=== PATIENT | male | born 2000 | race American Indian/Alaskan Native ===

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

== ENCOUNTER 2020-06-19 14:52 | Emergency (ER) | payer MEDICAID ==
[2020-06-19 15:25] VITALS: BP 124/77; PULSE 95
[2020-06-19 16:33] LABS: CHLORIDE,CL 100 mmol/L (98-107); SODIUM,NA 140 mmol/L (136-145)
[2020-06-19] MEDS ORDERED: Iopamidol 612 MG/ML 100 ML Bottle IVPUSH ONE (16:36)
[2020-06-19] MEDS ORDERED: Sodium Chloride 0.9% 10 ML Syringe FLUSH PRN (16:36)
--- NOTE | 2020-06-19 17:36 | CT ---
PROCEDURE INFORMATION: Exam: CT Abdomen And Pelvis With Contrast Exam date and time: 06/19/2020 5:21 PM Age: 19 years old Clinical indication: Other: Pain; Additional info: Upper left abd. Pain, blood mucus in stool TECHNIQUE: Imaging protocol: Computed tomography of the abdomen and pelvis with contrast. Radiation optimization: All CT scans at this facility use at least one of these dose optimization techniques: automated exposure control; mA and/or kV adjustment per patient size (includes targeted exams where dose is matched to clinical indication); or iterative reconstruction. Contrast material: [id number]; Contrast volume: 75 ml; Contrast route: INTRAVENOUS (IV); COMPARISON: No relevant prior studies available. FINDINGS: Liver: Normal. No mass. Gallbladder and bile ducts: Normal. No calcified stones. No ductal dilation. Pancreas: Normal. No ductal dilation. Spleen: Normal. No splenomegaly. Adrenal glands: Normal. No mass. Kidneys and ureters: Normal. No hydronephrosis. Stomach and bowel: There is mild thickening of the colon at the rectosigmoid junction. This could be due to mild colitis. The colon is otherwise unremarkable. Appendix: The appendix is well seen and is normal in appearance. Intraperitoneal space: Unremarkable. No free air. No significant fluid collection. Vasculature: Unremarkable. No abdominal aortic aneurysm. Lymph nodes: Unremarkable. No enlarged lymph nodes. Urinary bladder: Unremarkable as visualized. Reproductive: Unremarkable as visualized. Bones/joints: Unremarkable. No acute fracture. Soft tissues: Unremarkable. IMPRESSION: 1. Mild thickening of the mucosa of the colon near the rectosigmoid junction. This could be due to mild colitis. No other abnormality identified.
[2020-06-19] MEDS ORDERED: cefTRIAXone 1 GM in Sodium Chloride 0.9% 50 ML IV ONE (17:37)
[2020-06-19] MEDS ORDERED: Doxycycline Monohydrate 100 MG Cap PO ONE (17:38)
[2020-06-19] MEDS ORDERED: methylPREDNISolone Sodium Succinate 125 MG/2 ML SDV IVPUSH ONE (17:38)
--- NOTE | 2020-06-19 17:48 | EDM.PDOC ---
"Scribed by Maryann Goodman 06/19/20 1600 for Leida Alcala MD ED HPI GENERAL MEDICAL PROBLEM - General Chief Complaint: Gastrointestinal Problem Stated Complaint: STOMACHE PAIN VOMITTING/DIARRHEA Time Seen by Provider: 06/19/20 15:13 Source of Information: Reports: Patient, RN, RN Notes Reviewed History Limitations: Reports: No Limitations - History of Present Illness INITIAL COMMENTS - FREE TEXT/NARRATIVE: Patient presents to the ED by POV with c/o upper and left sided abdominal pain that is chronic, but has been worse for the past 3 days. He admits to chronic diarrhea, but for the last three days has had anal leakage with bloody and pus in his stool. Pt states that for about one year he has had daily upper abdominal/stomach pain. Also for the past year he claims to have had diarrhea most days. He does have some formed stool, but not often. Patient states he is self conscious because people tell him he smells like stool. He showers daily, sometimes several times in a day, but still smells like stool. Patient wishes to be checked for STDs because has had unprotected sex, with occasional penile discharge. He states he has had some painful skin bumps at the anus for 1 week, but will not allow them to be examined. He denies anal sex or any homosexual activity. In the past year has not gone to the doctor. He rates his pain 9/10, states took Ibuprofen 400mg 2 days ago but it didn't help. Onset: Other (Approx. one year since onset of symptoms) Duration: Chronic, Constant Location: Reports: Abdomen Quality: Reports: Ache, Burning, Pressure Severity: Severe Improves with: Reports: None Worsens with: Reports: None Associated Symptoms: Reports: No Other Symptoms Abdomen Pain Score (Numeric/FACES): 9 - Related Data Allergies Allergy/AdvReac Type Severity Reaction Status Date / Time No Known Allergies Allergy Verified 06/19/20 15:11 Home Meds: Home Meds . [No Known Home Meds] 12/01/15 [History] Past Medical History - Past Health History Medical/Surgical History: Denies Medical/Surgical History Genitourinary History: Reports: STD Musculoskeletal History: Reports: Fracture - Past Surgical History Musculoskeletal Surgical History: Reports: Other (See Below) Social & Family History - Family History Family Medical History: No Pertinent Family History - Caffeine Use Other Caffeine Use: unknown pt unable to answer questions - Sexual History Sexual History: Reports: Sexually Active - Living Situation & Occupation Living situation: Reports: with Family ED ROS GENERAL - Review of Systems Review Of Systems: Comprehensive ROS is negative, except as noted in HPI. ED EXAM, GI/ABD - Physical Exam Exam: See Below Exam Limited By: No Limitations General Appearance: Alert, WD/WN, No Apparent Distress Eyes: Bilateral: Normal Appearance (No scleral icterus) Nose: Normal Inspection Throat/Mouth: Normal Lips, Normal Voice, No Airway Compromise Head: Atraumatic, Normocephalic Neck: Normal Inspection, Non-Tender, Full Range of Motion. No: Lymphadenopathy (L), Lymphadenopathy (R) Respiratory/Chest: No Respiratory Distress, Lungs Clear, Normal Breath Sounds, No Accessory Muscle Use, Chest Non-Tender Cardiovascular: Normal Peripheral Pulses, Regular Rate, Rhythm, No Edema, No Murmur GI/Abdominal Exam: Normal Bowel Sounds, Soft, No Organomegaly, No Distention, Tender (Epigastric, LUQ, LLQ). No: Guarding, Rigid, Rebound (Male) Exam: Deferred Rectal (Males) Exam: Other (Pt declined/refused rectal exam) Back Exam: Normal Inspection, Full Range of Motion. No: CVA Tenderness (L), CVA Tenderness (R), Vertebral Tenderness Extremities: Normal Inspection, Normal Range of Motion, Non-Tender, Normal Capillary Refill, No Pedal Edema Neurological: Alert, Oriented, CN II-XII Intact, Normal Cognition, Normal Gait, No Motor/Sensory Deficits Psychiatric: Normal Mood, Flat Affect, Other (Not suicidal) Skin Exam: Warm, Dry, Intact, Normal Color, No Rash, Other ((Pt reports perianal skin bumps, but will not allow exam)) Course - Vital Signs Last Recorded V/S: Last Vital Signs Temp 99.1 F 06/19/20 15:02 Pulse 95 06/19/20 15:02 Resp 16 06/19/20 15:02 BP 124/77 06/19/20 15:02 Pulse Ox 100 06/19/20 15:02 - Orders/Labs/Meds Orders: Active Orders 24 hr Category Date Time Status Peripheral IV Care [RC] . DIRECTED Care 06/19/20 16:36 Active STD PANEL 3 [REF] Stat Lab 06/19/20 15:59 Received Sodium Chloride 0.9% [Saline Flush] Med 06/19/20 16:36 Active 10 ml FLUSH ASDIRECTED PRN cefTRIAXone [Rocephin] 1 gm Med 06/19/20 17:37 Ordered Sodium Chloride 0.9% [Normal Saline] 50 ml IV ONETIME Peripheral IV Insertion Adult [OM.PC] Stat Oth 06/19/20 16:36 Ordered Medication Orders Ceftriaxone Sodium 1 gm/ (Sodium Chloride) 50 mls @ 100 mls/hr IV ONETIME ONE Stop: 06/19/20 18:06 Sodium Chloride (Saline Flush) 10 ml FLUSH ASDIRECTED PRN PRN Reason: Keep Vein Open Labs: Laboratory Tests 06/19/20 06/19/20 06/19/20 Range/Units 15:59 15:59 16:01 WBC 5.9 (5.0-10.0) 10^3/uL RBC 5.83 (4.6-6.2) 10^6/uL Hgb 17.4 (14.0-18.0) g/dL Hct 50.7 (40.0-54.0) % MCV 87.0 (80-100) fL MCH 29.8 (27.0-34.0) pg MCHC 34.3 (33.0-35.0) g/dL Plt Count 267 (150-450) 10^3/uL Neut % (Auto) 61.2 (42.2-75.2) % Lymph % (Auto) 28.4 (20.5-50.1) % Divide % (Auto) 8.1 H (2-8) % Eos % (Auto) 2.0 (1.0-3.0) % Baso % (Auto) 0.3 (0.0-1.0) % ESR 1 (0-15) mm/hr Sodium (136-145) mmol/L Potassium (3.5-5.1) mmol/L Chloride (98-107) mmol/L Carbon Dioxide (21-32) mmol/L Anion Gap (7-13) mEq/L BUN (7-18) mg/dL Creatinine (0.70-1.30) mg/dL Est Cr Clr Drug Dosing mL/min Estimated GFR (MDRD) BUN/Creatinine Ratio (No establ ref range) Glucose (74-99) mg/dL Calcium (8.5-10.1) mg/dL Total Bilirubin (0.2-1.0) mg/dL AST (15-37) U/L ALT (16-63) U/L Alkaline Phosphatase (46-116) U/L C-Reactive Protein (0.0-0.9) mg/dL Total Protein (6.4-8.2) g/dL Albumin (3.4-5.0) g/dL Globulin Albumin/Globulin Ratio Amylase (25-115) U/L Lipase (73-393) U/L TSH, Ultra Sensitive (0.36-3.74) uIU/mL Urine Color Yellow (YELLOW) Urine Appearance Clear (CLEAR) Urine pH 7.0 (5.0-9.0) Ur Specific [place] 1.010 (1.005-1.030) Urine Protein Negative (NEGATIVE) Urine Glucose (UA) Negative (NEGATIVE) Urine Ketones Negative (NEGATIVE) Urine Occult Blood Negative (NEGATIVE) Urine Nitrite Negative (NEGATIVE) Urine Bilirubin Negative (NEGATIVE) Urine Urobilinogen 1.0 (0.2-1.0) mg/dL Ur Leukocyte Esterase Negative (NEGATIVE) Urine Opiates Screen Negative (NEGATIVE) Ur Oxycodone Screen Negative (NEGATIVE) Urine Methadone Screen Negative (NEGATIVE) Ur Barbiturates Screen Negative (NEGATIVE) U Tricyclic Antidepress Negative (NEGATIVE) Ur Phencyclidine Scrn Negative (NEGATIVE) Ur Amphetamine Screen Positive H (NEGATIVE) U Methamphetamines Scrn Positive H (NEGATIVE) Urine MDMA Screen Negative (NEGATIVE) U Benzodiazepines Scrn Negative (NEGATIVE) Urine Cocaine Screen Negative (NEGATIVE) U Marijuana (THC) Screen Positive H (NEGATIVE) 06/19/20 Range/Units 16:01 WBC (5.0-10.0) 10^3/uL RBC (4.6-6.2) 10^6/uL Hgb (14.0-18.0) g/dL Hct (40.0-54.0) % MCV (80-100) fL MCH (27.0-34.0) pg MCHC (33.0-35.0) g/dL Plt Count (150-450) 10^3/uL Neut % (Auto) (42.2-75.2) % Lymph % (Auto) (20.5-50.1) % Divide % (Auto) (2-8) % Eos % (Auto) (1.0-3.0) % Baso % (Auto) (0.0-1.0) % ESR (0-15) mm/hr Sodium 140 (136-145) mmol/L Potassium 4.0 (3.5-5.1) mmol/L Chloride 100 (98-107) mmol/L Carbon Dioxide 31 (21-32) mmol/L Anion Gap 13.0 (7-13) mEq/L BUN 9 (7-18) mg/dL Creatinine 1.02 (0.70-1.30) mg/dL Est Cr Clr Drug Dosing 115.52 mL/min Estimated GFR (MDRD) > 60 BUN/Creatinine Ratio 8.8 (No establ ref range) Glucose 95 (74-99) mg/dL Calcium 9.0 (8.5-10.1) mg/dL Total Bilirubin 1.1 H (0.2-1.0) mg/dL AST 13 L (15-37) U/L ALT 33 (16-63) U/L Alkaline Phosphatase 99 (46-116) U/L C-Reactive Protein < 0.2 (0.0-0.9) mg/dL Total Protein 8.5 H (6.4-8.2) g/dL Albumin 4.6 (3.4-5.0) g/dL Globulin 3.9 Albumin/Globulin Ratio 1.2 Amylase 26 (25-115) U/L Lipase 45 L (73-393) U/L TSH, Ultra Sensitive 0.75 (0.36-3.74) uIU/mL Urine Color (YELLOW) Urine Appearance (CLEAR) Urine pH (5.0-9.0) Ur Specific [place] (1.005-1.030) Urine Protein (NEGATIVE) Urine Glucose (UA) (NEGATIVE) Urine Ketones (NEGATIVE) Urine Occult Blood (NEGATIVE) Urine Nitrite (NEGATIVE) Urine Bilirubin (NEGATIVE) Urine Urobilinogen (0.2-1.0) mg/dL Ur Leukocyte Esterase (NEGATIVE) Urine Opiates Screen (NEGATIVE) Ur Oxycodone Screen (NEGATIVE) Urine Methadone Screen (NEGATIVE) Ur Barbiturates Screen (NEGATIVE) U Tricyclic Antidepress (NEGATIVE) Ur Phencyclidine Scrn (NEGATIVE) Ur Amphetamine Screen (NEGATIVE) U Methamphetamines Scrn (NEGATIVE) Urine MDMA Screen (NEGATIVE) U Benzodiazepines Scrn (NEGATIVE) Urine Cocaine Screen (NEGATIVE) U Marijuana (THC) Screen (NEGATIVE) Meds: Medications Generic Name Dose Route Start Last Admin Trade Name Freq PRN Reason Stop Dose Admin Ceftriaxone Sodium 1 gm/ 50 mls @ 100 mls/hr 06/19/20 17:37 Sodium Chloride IV 06/19/20 18:06 ONETIME ONE Sodium Chloride 10 ml 06/19/20 16:36 Saline Flush FLUSH ASDIRECTED PRN Keep Vein Open Discontinued Medications Generic Name Dose Route Start Last Admin Trade Name Freq PRN Reason Stop Dose Admin Doxycycline Monohydrate 100 mg 06/19/20 17:38 Doxycycline Monohydrate PO 06/19/20 17:39 ONETIME ONE Iopamidol 100 ml 06/19/20 16:36 06/19/20 16:42 Isovue-300 (61%) IVPUSH 06/19/20 16:37 100 ml ONETIME ONE Administration Methylprednisolone Sodium Succinate 125 mg 06/19/20 17:38 Solu-Medrol IVPUSH 06/19/20 17:39 ONETIME ONE - Radiology Interpretation Free Text/Narrative:: [facility] Final Radiology Report Call: [phone] assistance Online chat: [email or web address] Name: RIVER BOONE Age: 19Years M Date: 06/19/2020 SSN: -- : 2000 Study: CT ABDOMEN PELVIS W CONT Requesting Physician: LEIDA ALCALA Images: [id number] Addl Studies: Provided Clinical History: upper left abd. pain, blood mucus in stool Contrast: With Contrast Medium: [id number] Contrast Amount: 75 mL Contrast Method: Intravenous (IV) Page 1 of 2 PROCEDURE INFORMATION: Exam: CT Abdomen And Pelvis With Contrast Exam date and time: 06/19/2020 5:21 PM Age: 19 years old Clinical indication: Other: Pain; Additional info: Upper left abd. Pain, blood mucus in stool TECHNIQUE: Imaging protocol: Computed tomography of the abdomen and pelvis with contrast. Radiation optimization: All CT scans at this facility use at least one of these dose optimization techniques: automated exposure control; mA and/or kV adjustment per patient size (includes targeted exams where dose is matched to clinical indication); or iterative reconstruction. Contrast material: [id number]; Contrast volume: 75 ml; Contrast route: INTRAVENOUS (IV); COMPARISON: No relevant prior studies available. FINDINGS: Liver: Normal. No mass. Gallbladder and bile ducts: Normal. No calcified stones. No ductal dilation. Pancreas: Normal. No ductal dilation. Spleen: Normal. No splenomegaly. Adrenal glands: Normal. No mass. Kidneys and ureters: Normal. No hydronephrosis. Stomach and bowel: There is mild thickening of the colon at the rectosigmoid junction. This could be due to mild colitis. The colon is otherwise unremarkable. Appendix: The appendix is well seen and is normal in appearance. Intraperitoneal space: Unremarkable. No free air. No significant fluid collection. Vasculature: Unremarkable. No abdominal aortic aneurysm. Lymph nodes: Unremarkable. No enlarged lymph nodes. RIVER BOONE | Final Radiology Report CONFIDENTIALITY STATEMENT This report is intended only for use by the referring physician, and only in accordance with law. If you received this in error, call [phone]. Page 2 of 2 Urinary bladder: Unremarkable as visualized. Reproductive: Unremarkable as visualized. Bones/joints: Unremarkable. No acute fracture. Soft tissues: Unremarkable. IMPRESSION: 1. Mild thickening of the mucosa of the colon near the rectosigmoid junction. This could be due to mild colitis. No other abnormality identified. Thank you for allowing us to participate in the care of your patient. Dictated and Authenticated by: Kaushik Galvin MD 06/19/2020 5:36 PM Central Time ([place] & [place]) Departure - Departure Time of Disposition: 18:20 Disposition: Home, Self-Care 01 Condition: Good Clinical Impression: Colitis, Possible exposure to STD - Discharge Information *PRESCRIPTION DRUG MONITORING PROGRAM REVIEWED*: Not Applicable *COPY OF PRESCRIPTION DRUG MONITORING REPORT IN PATIENT ROBERTO CARLOS: Not Applicable Instructions: Colitis, Safe Sex Forms: ED Department Discharge Additional Instructions: Rx: Doxycycline 100mg Rx: Prednisone 20mg Rx: Imodium AD Follow up in clinic next week for recheck and referral to a GI specialist for colonoscopy. Sepsis Event Note (ED) - Focused Exam Vital Signs: Vital Signs Temp Pulse Resp BP Pulse Ox 06/19/20 15:02 99.1 F 95 16 124/77 100 - My Orders Last 24 Hours: My Active Orders 06/19/20 15:59 STD PANEL 3 [REF] Stat 06/19/20 16:36 Peripheral IV Care [RC] . DIRECTED Sodium Chloride 0.9% [Saline Flush] 10 ml FLUSH ASDIRECTED PRN Peripheral IV Insertion Adult [OM.PC] Stat 06/19/20 17:37 cefTRIAXone [Rocephin] 1 gm Sodium Chloride 0.9% [Normal Saline] 50 ml IV ONETIME - Assessment/Plan Last 24 Hours: My Active Orders 06/19/20 15:59 STD PANEL 3 [REF] Stat 06/19/20 16:36 Peripheral IV Care [RC] . DIRECTED Sodium Chloride 0.9% [Saline Flush] 10 ml FLUSH ASDIRECTED PRN Peripheral IV Insertion Adult [OM.PC] Stat 06/19/20 17:37 cefTRIAXone [Rocephin] 1 gm Sodium Chloride 0.9% [Normal Saline] 50 ml IV ONETIME I have read and agree with the documentation that has been completed regarding this visit. By signing this record, I attest that the documentation was completed in my physical presence and is an accurate record of the encounter."
[2020-06-24 11:46] LABS: C.TRACHOMATIS BY TMA Negative (Negative); N.GONORRHOEAE BY TMA Negative (Negative)
== END 2020-06-19 18:45 | disposition home or self-care (01) ==
LOC: DL.ED 14:52
DX: K52.9 Noninfective gastroenteritis and colitis, unspecified (principal); Z20.2 Contact with and (suspected) exposure to infections with a predominantly sexual mode of transmission
CPT/HCPCS: 36415; 74177; 80053; 80305; 81003; 82150; 83690; 84443; 85025; 85651; 86140; 87491; 87563; 87591; 96365; 96375; 99283; 99284; A9270; J0696; J2930; Q9967

== ENCOUNTER 2020-09-22 15:54 | Emergency (ER) | payer MEDICAID ==
[2020-09-22 18:25] VITALS: BP 140/77; PULSE 85
[2020-09-22] MEDS ORDERED: Iopamidol 612 MG/ML 100 ML Bottle IVPUSH ONE (19:28)
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
[2020-09-22 20:07] LABS: ANION GAP 14.2 mEq/L (7-13); CHLORIDE,CL 107 mmol/L (98-107); SODIUM,NA 144 mmol/L (136-145)
[2020-09-22 20:08] LABS: ACETAMINOPHEN 0 ug/mL (10-30 (Therapeutic))
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
== END 2020-09-22 21:11 | disposition home or self-care (01) ==
LOC: DL.ED 15:54
DX: F32.9 Major depressive disorder, single episode, unspecified (principal); Z72.0 Tobacco use
CPT/HCPCS: 36415; 70491; 80053; 80143; 80179; 80305-QW; 80307; 81003; 85025; 99283; 99285-25; Q9967

== ENCOUNTER 2020-12-17 00:17 | Emergency (ER) | payer MEDICAID ==
[2020-12-17] MEDS ORDERED: Sodium Chloride 0.9% 1,000 ML IV ONE ×2 (00:34→07:34)
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
[2020-12-17 01:10] LABS: ANION GAP 16.6 mEq/L (7-13); CHLORIDE,CL 104 mmol/L (98-107); SODIUM,NA 142 mmol/L (136-145)
[2020-12-17 01:11] LABS: ACETAMINOPHEN 0 ug/mL (10-30 (Therapeutic))
[2020-12-17 02:29] LABS: AMPHETAMINES,URINE NEGATIVE (NEGATIVE); BARBITURATES,URINE NEGATIVE (NEGATIVE); BENZODIAZEPINE,URINE NEGATIVE (NEGATIVE); MDMA (ECSTASY), URINE NEGATIVE (NEGATIVE); METHADONE,URINE NEGATIVE (NEGATIVE); METHAMPHETAMINES,URINE NEGATIVE (NEGATIVE); OPIATES,URINE NEGATIVE (NEGATIVE); OXYCODONE,URINE NEGATIVE (NEGATIVE); PHENCYCLIDINE,URINE NEGATIVE (NEGATIVE); TCA,URINE NEGATIVE (NEGATIVE)
[2020-12-17] MEDS ORDERED: Ondansetron 4 MG/2 ML SDV IV ONE (07:34)
[2020-12-17 12:07] VITALS: BP 108/67
[2020-12-17 12:38] VITALS: PULSE 80
[2020-12-17] MEDS ORDERED: Acetaminophen 325 MG Tab PO ONE (15:01)
== END 2020-12-17 15:06 | disposition other institution (70) ==
LOC: DL.ED 00:17
DX: F33.2 Major depressive disorder, recurrent severe without psychotic features (principal); T43.222A Poisoning by selective serotonin reuptake inhibitors, intentional self-harm, initial encounter; T43.592A Poisoning by other antipsychotics and neuroleptics, intentional self-harm, initial encounter
CPT/HCPCS: 36415; 80053; 80143; 80179; 80305-QW; 80307; 81003; 85025; 93005; 96374; 99285-25; A9270-GY; J2405; J7030; U0002

== ENCOUNTER 2021-03-06 03:37 | Emergency (ER) | payer MEDICAID ==
[2021-03-06] MEDS ORDERED: Sodium Chloride 0.9% 10 ML Syringe FLUSH PRN (03:55)
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
[2021-03-06] MEDS ORDERED: Sodium Chloride 0.9% 1,000 ML IV ONE (04:31)
[2021-03-06] MEDS ORDERED: Ondansetron 4 MG/2 ML SDV IVPUSH ONE (04:31)
[2021-03-06 04:35] LABS: ANION GAP 16.8 mEq/L (7-13); CHLORIDE,CL 104 mmol/L (98-107); SODIUM,NA 139 mmol/L (136-145)
[2021-03-06 04:36] LABS: ACETAMINOPHEN 0 ug/mL (10-30 (Therapeutic))
[2021-03-06 05:18] VITALS: BP 101/64; PULSE 94
[2021-03-06 09:27] LABS: METHAMPHETAMINES,URINE POSITIVE (NEGATIVE)
[2021-03-06 09:28] LABS: AMPHETAMINES,URINE POSITIVE (NEGATIVE); BARBITURATES,URINE NEGATIVE (NEGATIVE); BENZODIAZEPINE,URINE NEGATIVE (NEGATIVE); MDMA (ECSTASY), URINE POSITIVE (NEGATIVE); METHADONE,URINE NEGATIVE (NEGATIVE); OPIATES,URINE NEGATIVE (NEGATIVE); OXYCODONE,URINE NEGATIVE (NEGATIVE); PHENCYCLIDINE,URINE NEGATIVE (NEGATIVE); TCA,URINE NEGATIVE (NEGATIVE)
== END 2021-03-06 10:22 | disposition other institution (70) ==
LOC: DL.ED 03:37
DX: F10.10 Alcohol abuse, uncomplicated (principal); F32.A Depression, unspecified; Z20.822 Contact with and (suspected) exposure to COVID-19; X83.8XXA Intentional self-harm by other specified means, initial encounter
CPT/HCPCS: 36415; 80053; 80143; 80179; 80305; 80307; 81001; 82550; 83735; 84443; 85025; 87635; 93005; 96374; 99285; J2405; J7030; U0002

== ENCOUNTER 2022-04-03 22:22 | Emergency (ER) | payer MEDICAID ==
[2022-04-03] MEDS ORDERED: Lidocaine 1% 10 ML MDV INJECT ONE (23:09)
[2022-04-04 01:07] VITALS: BP 117/61; PULSE 78
[2022-04-04] MEDS ORDERED: Bacitracin Oint 1 GM U/D Packet TOP ONE (01:35)
[2022-04-04] MEDS ORDERED: Ketorolac 30 MG/ML SDV IM ONE (01:35)
== END 2022-04-04 02:01 | disposition home or self-care (01) ==
LOC: DL.ED 22:22
DX: S81.852A Open bite, left lower leg, initial encounter (principal); W54.0XXA Bitten by dog, initial encounter; Y92.009 Unspecified place in unspecified non-institutional (private) residence as the place of occurrence of the external cause
CPT/HCPCS: 12002; 73590; 96372; 99284; J1885

== ENCOUNTER 2024-07-19 01:58 | Emergency (ER) | payer SELFPAY ==
[2024-07-19 02:26] LABS: BASOPHILS PERCENT AUTO 0.1 % (0.0-1.0); EOSINOPHILS PERCENT AUTO 0.1 % (1.0-3.0); HEMATOCRIT 43.6 % (40.0-54.0); HEMOGLOBIN 14.7 g/dL (14.0-18.0); LYMPHOCYTES PERCENT AUTO 12.9 % (20.5-50.1); MEAN CORPUSCULAR HEMOGLOBIN 29.6 pg (27.0-34.0); MEAN CORPUSCULAR HGB CONC 33.7 g/dL (33.0-35.0); MEAN CORPUSCULAR VOLUME 87.9 fL (80-100); MONOCYTES PERCENT AUTO 7.5 % (2-8); NEUTROPHILS PERCENT AUTO 79.4 % (42.2-75.2); PLATELET COUNT,PLT 258 10^3/uL (150-450); RED BLOOD CELL COUNT 4.96 10^6/uL (4.6-6.2); WHITE BLOOD CELL COUNT,WBC 9.5 10^3/uL (5.0-10.0)
[2024-07-19 02:40] LABS: APPEARANCE,URINE SLIGHTLY CLOUDY (CLEAR); BILIRUBIN,URINE NEGATIVE (NEGATIVE); COLOR,URINE YELLOW (YELLOW); GLUCOSE,URINE NEGATIVE (NEGATIVE); KETONES,URINE TRACE (NEGATIVE); LEUKOCYTE ESTERASE,URINE NEGATIVE (NEGATIVE); NITRITE,URINE NEGATIVE (NEGATIVE); OCCULT BLOOD,URINE TRACE-INTACT (NEGATIVE); PROTEIN,URINE 30 (NEGATIVE); UROBILINOGEN,URINE 0.2 mg/dL (0.2-1.0)
[2024-07-19 02:45] LABS: AMPHETAMINES,URINE NEGATIVE (NEGATIVE); BARBITURATES,URINE NEGATIVE (NEGATIVE); BENZODIAZEPINE,URINE NEGATIVE (NEGATIVE); MDMA (ECSTASY), URINE NEGATIVE (NEGATIVE); METHADONE,URINE NEGATIVE (NEGATIVE); METHAMPHETAMINES,URINE NEGATIVE (NEGATIVE); OPIATES,URINE NEGATIVE (NEGATIVE); OXYCODONE,URINE NEGATIVE (NEGATIVE); PHENCYCLIDINE,URINE NEGATIVE (NEGATIVE); TCA,URINE NEGATIVE (NEGATIVE)
[2024-07-19 02:51] LABS: BACTERIA,URINE FEW /HPF (0-FEW/HPF); EPITHELIAL CELLS,URINE RARE /HPF (NOT SEEN); MUCUS,URINE MANY /LPF (NOT SEEN); RBC,URINE 0-5 /HPF (0-5)
[2024-07-19 02:54] LABS: A/G RATIO 1.1; ACETAMINOPHEN 0 ug/mL (10-30 (Therapeutic)); ALANINE AMINOTRANSFERASE,ALT 52 U/L (16-63); ALBUMIN 4.1 g/dL (3.4-5.0); ALKALINE PHOSPHATASE 129 U/L (46-116); ANION GAP 18.3 mEq/L (7-13); ASPARTATE AMNIOTRANSFERASE,AST 21 U/L (15-37); BLOOD UREA NITROGEN,BUN 8 mg/dL (7-18); BUN/CREATININE RATIO 7.7 (No establ ref range); CARBON DIOXIDE,CO2 25 mmol/L (21-32); CHLORIDE,CL 102 mmol/L (98-107); CREATININE 1.04 mg/dL (0.70-1.30); EST CRCL DRUG DOSING (CG) 112.11 mL/min; ESTIMATED GFR 102 mL/min (>=60); GLUCOSE RANDOM 148 mg/dL (70-99); POTASSIUM,K 3.3 mmol/L (3.5-5.1); SODIUM,NA 142 mmol/L (136-145)
[2024-07-19 02:55] LABS: ETHANOL BLOOD MEDICAL < 3 mg/dL (0)
[2024-07-19 07:45] VITALS: PULSE 78
[2024-07-19] MEDS: Potassium Chloride 10% 20 MEQ/15 ML Soln 15 ML UD Cup PO ONE (07:46)
[2024-07-19 09:12] VITALS: BP 134/83
== END 2024-07-19 09:32 ==
LOC: DL.ED 01:58
DX: R45.851 Suicidal ideations (principal); F32.9 Major depressive disorder, single episode, unspecified
CPT/HCPCS: 36415; 80053; 80143; 80179; 80305; 80307; 81001; 84443; 85025; 87428; 99285; A9270